=== PATIENT | female | born 1970 | race Caucasian/White ===

== ENCOUNTER 2021-03-10 03:42 | Observation (INO) ==
[2021-03-10] MEDS ORDERED: 0.9 % Sodium Chloride 1,000 ML IVC ONE (04:00)
[2021-03-10] MEDS ORDERED: Pantoprazole 40 MG VIAL IVP ONE (04:01)
[2021-03-10] MEDS ORDERED: Metoclopramide 10 MG/2 ML VIAL IVP ONE (04:01)
[2021-03-10 04:17] LABS: Basophils # 0.1 K/mcL (0.0-0.2); Basophils % 0.4 %; Eosinophils # 0.1 K/mcL (0.0-0.6); Eosinophils % 0.4 %; Hematocrit 40.5 % (35.3-44.9); Hemoglobin 14.2 g/dL (11.5-15.4); Immature Granulocytes % 0.3 % (0-4); Lymphocytes # 0.3 K/mcL (0.6-4.6); Lymphocytes % 2.8 %; Mean Corpuscular HGB Conc 35.1 g/dL (31.6-35.5); Mean Corpuscular Hemoglobin 29.7 pg (28.0-33.3); Mean Corpuscular Volume 84.7 fL (83.0-100.0); Mean Platelet Volume 9.6 fL (9.4-12.4); Monocytes # 0.5 K/mcL (0.0-1.3); Monocytes % 4.2 %; Neutrophils # 10.5 K/mcL (1.6-8.9); Platelet Count 109 K/mcL (140-400); Red Blood Count 4.78 M/mcL (3.82-4.97); Red Cell Distribution Width 12.8 % (11.5-14.5); Segmented Neutrophils % 91.9 %; White Blood Count 11.4 K/mcL (4.3-11.1)
[2021-03-10 04:34] LABS: Albumin/Globulin Ratio 1.4 (1.1-2.2); Bilirubin,Total 2.1 mg/dL (0.3-1.0); Calcium 9.3 mg/dL (8.6-10.3); Globulin 2.9 g/dL (2.4-3.5); Potassium 4.5 mEq/L (3.5-5.1); Total Protein 6.9 g/dL (6.4-8.9)
[2021-03-10 04:37] LABS: Bilirubin,Urine Negative (Negative); Blood,Urine Small (Negative); Clarity,Urine Slightly Cloudy (Clear); Glucose,Urine (UA) 500 mg/dL (Normal); Ketones,Urine Negative (Negative); Leukocyte Esterase,Urine Negative (Negative); Nitrite,Urine Negative (Negative); PH,Urine 7.5 pH Units (5.0-8.0); Protein,Urine >=300 mg/dL (Neg-Trace); Specific Gravity,Urine 1.025 (1.010-1.025); Urobilinogen,Urine Normal (Normal)
[2021-03-10 04:40] LABS: Color,Urine Yellow (Yellow); Squamous Epithelial Cell,Urine Few per hpf (None-Few)
[2021-03-10 04:41] LABS: Amorphous Sediment,Urine Few per hpf (None-Few)
[2021-03-10] MEDS ORDERED: Insulin Regular, Human 100 UNIT/ML SUBQ ONE (06:14)
[2021-03-10] MEDS ORDERED: *HR* HYDROcodone/Acet 5/325 mg TABLET PO PRN (09:25)
[2021-03-10] MEDS ORDERED: Mag Hydrox/Al Hydrox/Simeth 30 ML UDC PO PRN (09:25)
[2021-03-10] MEDS ORDERED: Naloxone 0.4 MG/ML INJ IVP PRN (09:25)
[2021-03-10] MEDS ORDERED: MOM Conc 10 ML UD.LIQ PO PRN (09:25)
[2021-03-10] MEDS ORDERED: Melatonin 3 MG TABLET PO PRN (09:25)
[2021-03-10] MEDS ORDERED: Ondansetron ODT 4 MG TAB.RAPDIS SL PRN (09:25)
[2021-03-10] MEDS ORDERED: Ondansetron 4 MG/2 ML VIAL IVP PRN (09:25)
[2021-03-10] MEDS: 0.9 % Sodium Chloride w KCl 20 MEQ/1,000 ML MLS IVC SCH ×2 (10:14→23:56)
[2021-03-10] MEDS ORDERED: Dextrose Gel 15 GM/37.5 ML TUBE PO PRN ×2 (12:35)
[2021-03-10] MEDS ORDERED: *HR* Dextrose 50 % in Water (Vial) 50 ML VIAL IVP PRN (12:35)
[2021-03-10] MEDS ORDERED: D5% in Water 1,000 ML IVC PRN (12:35)
[2021-03-10] MEDS: Insulin LISPRO 300 UNITS/3 ML VIAL SUBQ SCH ×2 (13:23→17:33)
[2021-03-10] MEDS: Ibuprofen 400 MG TABLET PO PRN (16:12)
[2021-03-10 19:19] LABS: Hepatitis B Surface Antigen Nonreactive (Nonreactive)
[2021-03-10 19:23] LABS: Estimated Average Glucose 186 mg/dl; Hemoglobin A1C 8.1 %
[2021-03-10 19:49] LABS: Hepatitis B Core IgM Nonreactive (Nonreactive); Hepatitis C Virus Antibody Nonreactive (Nonreactive)
[2021-03-10 19:50] LABS: Hepatitis A Antibody IgM Nonreactive (Nonreactive)
[2021-03-10] MEDS ORDERED: Insulin LISPRO 300 UNITS/3 ML VIAL SUBQ SCH (21:00)
[2021-03-10] MEDS ORDERED: Insulin DETEMIR 100 UNIT/ML X5UNITS SUBQ SCH (21:00)
[2021-03-10] MEDS: traZODone 50 MG TABLET PO SCH (21:56)
[2021-03-10] MEDS: Gabapentin 300 MG CAPSULE PO SCH (21:56)
[2021-03-11 05:41] LABS: Basophils % 0.4 %; Eosinophils % 0.6 %; Hemoglobin 11.8 g/dL (11.5-15.4); Lymphocytes # 0.5 K/mcL (0.6-4.6); Lymphocytes % 10.1 %; Mean Corpuscular HGB Conc 33.7 g/dL (31.6-35.5); Mean Corpuscular Hemoglobin 29.3 pg (28.0-33.3); Mean Corpuscular Volume 86.8 fL (83.0-100.0); Mean Platelet Volume 9.5 fL (9.4-12.4); Monocytes # 0.3 K/mcL (0.0-1.3); Monocytes % 6.5 %; Red Blood Count 4.03 M/mcL (3.82-4.97); Red Cell Distribution Width 13.2 % (11.5-14.5); Segmented Neutrophils % 81.4 %; White Blood Count 5.2 K/mcL (4.3-11.1)
[2021-03-11 05:45] LABS: Neutrophils # 4.2 K/mcL (1.6-8.9)
[2021-03-11 05:46] LABS: Platelet Count 82 K/mcL (140-400)
[2021-03-11 05:59] LABS: Albumin 3.2 g/dL (3.5-5.7); Albumin/Globulin Ratio 1.3 (1.1-2.2); Bilirubin,Total 1.5 mg/dL (0.3-1.0); Calcium 8.1 mg/dL (8.6-10.3); Globulin 2.5 g/dL (2.4-3.5); Magnesium 1.9 mg/dL (1.6-2.6); Phosphorous 2.2 mg/dL (2.7-4.5); Potassium 4.4 mEq/L (3.5-5.1); Total Protein 5.7 g/dL (6.4-8.9)
[2021-03-11] MEDS: Insulin LISPRO 300 UNITS/3 ML VIAL SUBQ SCH ×3 (09:45→16:16)
[2021-03-11] MEDS: Gabapentin 300 MG CAPSULE PO SCH ×2 (09:45→22:29)
[2021-03-11] MEDS: Ibuprofen 400 MG TABLET PO PRN (09:50)
[2021-03-11] MEDS ORDERED: MOM Conc 10 ML UD.LIQ PO PRN (14:35)
[2021-03-11] MEDS ORDERED: Insulin LISPRO 300 UNITS/3 ML VIAL SUBQ SCH (14:44)
[2021-03-11] MEDS ORDERED: Insulin DETEMIR 100 UNIT/ML per UNIT SUBQ ONE (15:00)
[2021-03-11] MEDS: traZODone 50 MG TABLET PO SCH (22:28)
[2021-03-11] MEDS: hydrOXYzine pamoate 25 MG CAPSULE PO SCH (22:31)
[2021-03-11] MEDS: Sennosides/Docusate Sodium TABLET PO SCH (22:32)
[2021-03-11] MEDS: Insulin DETEMIR 100 UNIT/ML X5UNITS SUBQ SCH (22:36)
[2021-03-12 06:42] VITALS: BP 156/82
[2021-03-12] MEDS ORDERED: polyethylene glycoL 3350 17 GM POWD.PACK PO SCH (09:00)
[2021-03-12] MEDS: Sennosides/Docusate Sodium TABLET PO SCH (09:18)
[2021-03-12] MEDS: Gabapentin 300 MG CAPSULE PO SCH (09:20)
[2021-03-12] MEDS: Insulin DETEMIR 100 UNIT/ML X5UNITS SUBQ SCH (09:20)
[2021-03-12] MEDS: hydrOXYzine pamoate 25 MG CAPSULE PO SCH (09:20)
[2021-03-12] MEDS: Insulin LISPRO 300 UNITS/3 ML VIAL SUBQ SCH (09:21)
== END 2021-03-12 12:31 | disposition home or self-care (01) ==
LOC: EMEROOGRE 03:42 → INPGRE 03:42
PROVIDERS: ADMIT Family Medicine; ATTEND Family Medicine

== ENCOUNTER 2022-04-20 17:53 | Inpatient (IN) ==
[2022-04-20] MEDS ORDERED: Vancomycin 1,500 MG in D5% in Water 250 ML IVPB ONE (18:24)
[2022-04-20 18:59] LABS: Basophils % 0.8 %; Eosinophils # 0.1 K/mcL (0.0-0.6); Eosinophils % 2.1 %; Hematocrit 39.8 % (35.3-44.9); Hemoglobin 14.1 g/dL (11.5-15.4); Immature Granulocytes % 0.6 % (0-4); Lymphocytes # 0.6 K/mcL (0.6-4.6); Lymphocytes % 13.3 %; Mean Corpuscular HGB Conc 35.4 g/dL (31.6-35.5); Mean Corpuscular Hemoglobin 29.4 pg (28.0-33.3); Mean Corpuscular Volume 83.1 fL (83.0-100.0); Mean Platelet Volume 9.8 fL (9.4-12.4); Monocytes # 0.2 K/mcL (0.0-1.3); Monocytes % 4.4 %; Neutrophils # 3.8 K/mcL (1.6-8.9); Platelet Count 143 K/mcL (140-400); Red Blood Count 4.79 M/mcL (3.82-4.97); Red Cell Distribution Width 13.1 % (11.5-14.5); Segmented Neutrophils % 78.8 %; White Blood Count 4.8 K/mcL (4.3-11.1)
[2022-04-20] MEDS ORDERED: Silver Sulfadiazine 50 GM TUBE TP ONE (19:13)
[2022-04-20 19:25] LABS: Albumin 3.7 g/dL (3.5-5.7); Albumin/Globulin Ratio 1.2 (1.1-2.2); Bilirubin,Total 0.7 mg/dL (0.3-1.0); Calcium 9.5 mg/dL (8.6-10.3); Potassium 4.8 mEq/L (3.5-5.1); Total Protein 6.7 g/dL (6.4-8.9)
[2022-04-20] MEDS ORDERED: 0.9 % Sodium Chloride 1,000 ML IVC ONE (19:25)
[2022-04-20] MEDS ORDERED: Insulin Regular, Human 100 UNIT/ML SUBQ ONE (19:25)
[2022-04-20] MEDS ORDERED: Ondansetron ODT 4 MG TAB.RAPDIS SL PRN (22:17)
[2022-04-20] MEDS ORDERED: Acetaminophen 325 MG TABLET PO PRN (22:17)
[2022-04-20] MEDS ORDERED: Naloxone 0.4 MG/ML INJ IVP PRN (22:17)
[2022-04-20] MEDS ORDERED: Ibuprofen 400 MG TABLET PO PRN (22:17)
[2022-04-20] MEDS ORDERED: *HR* HYDROcodone/Acet 5/325 mg TABLET PO PRN (22:17)
[2022-04-20] MEDS ORDERED: *HR* Dextrose 50 % in Water (Syg) 50 ML SYRINGE IVP PRN (23:04)
[2022-04-20] MEDS ORDERED: D5% in Water 1,000 ML IVC PRN (23:04)
[2022-04-20] MEDS ORDERED: Dextrose Gel 15 GM/37.5 ML TUBE PO PRN ×2 (23:04)
[2022-04-20] MEDS: Insulin DETEMIR 100 UNIT/ML X5UNITS SUBQ SCH (23:25)
[2022-04-20] MEDS: Mirtazapine 15 MG TABLET PO SCH (23:25)
[2022-04-20] MEDS ORDERED: Insulin DETEMIR 100 UNIT/ML per UNIT SUBQ ONE (23:30)
[2022-04-20] MEDS ORDERED: metroNIDAZOLE 500 MG TABLET PO SCH (23:30)
[2022-04-21] MEDS: Piperacillin/Tazobactam 3.375 GM in 0.9 % Sodium Chloride Mini Bag 100 ML IVPB SCH ×3 (00:23→16:57)
[2022-04-21] MEDS: Insulin LISPRO 300 UNITS/3 ML VIAL SUBQ SCH ×6 (00:30→20:33)
[2022-04-21 05:19] LABS: Basophils % 0.9 %; Eosinophils # 0.1 K/mcL (0.0-0.6); Eosinophils % 2.2 %; Hematocrit 35.8 % (35.3-44.9); Hemoglobin 12.6 g/dL (11.5-15.4); Immature Granulocytes % 0.7 % (0-4); Lymphocytes % 22.1 %; Mean Corpuscular HGB Conc 35.2 g/dL (31.6-35.5); Mean Corpuscular Hemoglobin 29.1 pg (28.0-33.3); Mean Corpuscular Volume 82.7 fL (83.0-100.0); Mean Platelet Volume 9.6 fL (9.4-12.4); Monocytes # 0.4 K/mcL (0.0-1.3); Monocytes % 7.6 %; Neutrophils # 3.1 K/mcL (1.6-8.9); Platelet Count 134 K/mcL (140-400); Red Blood Count 4.33 M/mcL (3.82-4.97); Red Cell Distribution Width 12.9 % (11.5-14.5); Segmented Neutrophils % 66.5 %; White Blood Count 4.6 K/mcL (4.3-11.1)
[2022-04-21 05:35] LABS: Potassium 3.7 mEq/L (3.5-5.1)
[2022-04-21] MEDS: Losartan/HCTZ 50-12.5 TABLET PO SCH (08:51)
[2022-04-21] MEDS: *HR* HYDROcodone/Acet 5/325 mg TABLET PO PRN ×2 (14:48→19:56)
[2022-04-21] MEDS: Vancomycin 1,500 MG/265 ML IV.SOLN IVPB SCH (17:32)
[2022-04-21] MEDS: Mirtazapine 15 MG TABLET PO SCH (19:52)
[2022-04-22] MEDS: Piperacillin/Tazobactam 3.375 GM in 0.9 % Sodium Chloride Mini Bag 100 ML IVPB SCH ×3 (00:18→16:57)
[2022-04-22] MEDS: Insulin LISPRO 300 UNITS/3 ML VIAL SUBQ SCH ×6 (00:18→20:59)
[2022-04-22 01:54] LABS: Bacteria,Urine Few per hpf (None-Few); Bilirubin,Urine Negative (Negative); Blood,Urine Negative (Negative); Clarity,Urine Clear (Clear); Color,Urine Yellow (Yellow); Glucose,Urine (UA) Normal (Normal); Ketones,Urine Negative (Negative); Leukocyte Esterase,Urine Small (Negative); Nitrite,Urine Negative (Negative); Protein,Urine Trace mg/dL (Neg-Trace); RBC,Urine 0-3 per hpf (0-3); Squamous Epithelial Cell,Urine Few per hpf (None-Few); Urobilinogen,Urine Normal (Normal)
[2022-04-22] MEDS: *HR* Enoxaparin 40 MG/0.4 ML SYRINGE SQ SCH (05:14)
[2022-04-22 08:18] LABS: Hematocrit 37.9 % (35.3-44.9); Hemoglobin 13.1 g/dL (11.5-15.4); Mean Corpuscular HGB Conc 34.6 g/dL (31.6-35.5); Mean Corpuscular Hemoglobin 29.3 pg (28.0-33.3); Mean Corpuscular Volume 84.8 fL (83.0-100.0); Mean Platelet Volume 9.5 fL (9.4-12.4); Platelet Count 126 K/mcL (140-400); Red Blood Count 4.47 M/mcL (3.82-4.97); Red Cell Distribution Width 13.3 % (11.5-14.5); White Blood Count 3.9 K/mcL (4.3-11.1)
[2022-04-22 08:32] LABS: Albumin 3.2 g/dL (3.5-5.7); Albumin/Globulin Ratio 1.3 (1.1-2.2); Bilirubin,Total 0.8 mg/dL (0.3-1.0); Calcium 9.1 mg/dL (8.6-10.3); Globulin 2.5 g/dL (2.4-3.5); Magnesium 2.1 mg/dL (1.6-2.6); Potassium 3.9 mEq/L (3.5-5.1); Total Protein 5.7 g/dL (6.4-8.9)
[2022-04-22] MEDS: Losartan/HCTZ 50-12.5 TABLET PO SCH (09:01)
[2022-04-22] MEDS: *HR* HYDROcodone/Acet 5/325 mg TABLET PO PRN ×3 (09:02→20:56)
[2022-04-22] MEDS: Vancomycin 1,500 MG/265 ML IV.SOLN IVPB SCH (16:57)
[2022-04-22] MEDS: Mirtazapine 15 MG TABLET PO SCH (20:56)
[2022-04-22] MEDS: Insulin DETEMIR 100 UNIT/ML X5UNITS SUBQ SCH (20:59)
[2022-04-22 23:23] LABS: A.calcoaceticus-baumannii cplx Not Detected (Not Detect); Bacteroides fragilis by PCR Not Detected (Not Detect); CTX-M ESBL Gene Not Detected (Not Detect); Candida albicans by PCR Not Detected (Not Detect); Candida auris by PCR Not Detected (Not Detect); Candida glabrata by PCR Not Detected (Not Detect); Candida krusei by PCR Not Detected (Not Detect); Candida parapsilosis by PCR Not Detected (Not Detect); Candida tropicalis by PCR Not Detected (Not Detect); Crypto. neoformans/gattii PCR Not Detected (Not Detect); Enterobacter cloacae Cmplx PCR Not Detected (Not Detect); Enterobacterales by PCR Not Detected (Not Detect); Enterococcus faecalis by PCR Not Detected (Not Detect); Enterococcus faecium by PCR Not Detected (Not Detect); Escherichia coli by PCR Not Detected (Not Detect); IMP Carbapenem-Resist Gene Not Detected (Not Detect); Klebs. pneumoniae group by PCR Not Detected (Not Detect); Klebsiella aerogenes by PCR Not Detected (Not Detect); Klebsiella oxytoca by PCR Not Detected (Not Detect); NDM Carbapenem-Resist Gene Not Detected (Not Detect); OXA-48-like Carbap-Resist Gene Not Detected (Not Detect); Proteus by PCR Not Detected (Not Detect); Pseudomonas aeruginosa by PCR Not Detected (Not Detect); Salmonella species by PCR Not Detected (Not Detect); Serratia marcescens by PCR Not Detected (Not Detect); Staph epidermidis by PCR Not Detected (Not Detect); Staph lugdunensis by PCR Not Detected (Not Detect); Staphylococcus aureus by PCR Not Detected (Not Detect); Staphylococcus by PCR DETECTED (Not Detect); Stenotrophomonas maltophilia Not Detected (Not Detect); Streptococcus agalactiae(B)PCR Not Detected (Not Detect); Streptococcus by PCR Not Detected (Not Detect); Streptococcus pneumoniae PCR Not Detected (Not Detect); Streptococcus pyogenes (A) PCR Not Detected (Not Detect); VIM Carbapenem-Resist Gene Not Detected (Not Detect); blaKPC Carbapenem-Resist Gene Not Detected (Not Detect); mcr-1 Colistin-Resist Gene Not Detected (Not Detect); mecA/C & MREJ (MRSA) Gene Not Detected (Not Detect); mecA/C Methicillin-Resist Gene Not Detected (Not Detect); vanA/B Vancomycin-Resist Genes Not Detected (Not Detect)
[2022-04-23] MEDS: Insulin LISPRO 300 UNITS/3 ML VIAL SUBQ SCH ×6 (00:31→20:47)
[2022-04-23] MEDS: Piperacillin/Tazobactam 3.375 GM in 0.9 % Sodium Chloride Mini Bag 100 ML IVPB SCH ×2 (00:33→08:25)
[2022-04-23] MEDS: *HR* Enoxaparin 40 MG/0.4 ML SYRINGE SQ SCH (04:47)
[2022-04-23] MEDS: *HR* HYDROcodone/Acet 5/325 mg TABLET PO PRN ×2 (04:49→20:44)
[2022-04-23] MEDS: Losartan/HCTZ 50-12.5 TABLET PO SCH (08:23)
[2022-04-23] MEDS: Fluconazole 200 MG/100 ML 200 MG/100 ML BAG IVPB SCH (08:24)
[2022-04-23] MEDS ORDERED: Perflutren Lipid Microsphere 1.3 ML in 0.9 % Sodium Chloride 8.7 ML IVP PRN (12:14)
[2022-04-23] MEDS ORDERED: Insulin DETEMIR 100 UNIT/ML X5UNITS SUBQ SCH ×2 (12:16→21:00)
[2022-04-23] MEDS ORDERED: Insulin DETEMIR 100 UNIT/ML per UNIT SUBQ ONE (12:30)
[2022-04-23] MEDS ORDERED: 0.9 % Sodium Chloride 1,000 ML IVC SCH (13:30)
[2022-04-23] MEDS: *HR* Heparin 5,000 UNIT/ML VIAL SQ SCH ×2 (13:57→20:46)
[2022-04-23] MEDS: Vancomycin 1,500 MG/265 ML IV.SOLN IVPB SCH (16:51)
[2022-04-23] MEDS: Mirtazapine 15 MG TABLET PO SCH (20:45)
[2022-04-23] MEDS: Insulin DETEMIR 100 UNIT/ML X5UNITS SUBQ SCH (20:47)
[2022-04-24] MEDS: Insulin LISPRO 300 UNITS/3 ML VIAL SUBQ SCH ×8 (00:31→20:30)
[2022-04-24 04:34] LABS: Eosinophils # 0.1 K/mcL (0.0-0.6); Eosinophils % 2.6 %; Hemoglobin 12.9 g/dL (11.5-15.4); Lymphocytes # 0.9 K/mcL (0.6-4.6); Lymphocytes % 29.7 %; Mean Corpuscular HGB Conc 33.9 g/dL (31.6-35.5); Mean Corpuscular Volume 85.4 fL (83.0-100.0); Mean Platelet Volume 9.2 fL (9.4-12.4); Monocytes # 0.2 K/mcL (0.0-1.3); Monocytes % 7.8 %; Neutrophils # 1.8 K/mcL (1.6-8.9); Platelet Count 109 K/mcL (140-400); Red Blood Count 4.45 M/mcL (3.82-4.97); Red Cell Distribution Width 13.3 % (11.5-14.5); Segmented Neutrophils % 57.9 %; White Blood Count 3.1 K/mcL (4.3-11.1)
[2022-04-24 04:49] LABS: Calcium 9.2 mg/dL (8.6-10.3); Potassium 4.5 mEq/L (3.5-5.1)
[2022-04-24] MEDS: *HR* Heparin 5,000 UNIT/ML VIAL SQ SCH ×3 (06:21→20:36)
[2022-04-24] MEDS: *HR* HYDROcodone/Acet 5/325 mg TABLET PO PRN ×3 (09:14→20:59)
[2022-04-24] MEDS: Losartan/HCTZ 50-12.5 TABLET PO SCH (09:14)
[2022-04-24] MEDS: Fluconazole 200 MG/100 ML 200 MG/100 ML BAG IVPB SCH (09:15)
[2022-04-24] MEDS: Insulin DETEMIR 100 UNIT/ML X5UNITS SUBQ SCH (09:17)
[2022-04-24] MEDS: Vancomycin 1,500 MG/265 ML IV.SOLN IVPB SCH (17:05)
[2022-04-24] MEDS: Mirtazapine 15 MG TABLET PO SCH (20:33)
[2022-04-24] MEDS ORDERED: Insulin DETEMIR 100 UNIT/ML X5UNITS SUBQ SCH (21:00)
[2022-04-24] MEDS ORDERED: Insulin DETEMIR 100 UNIT/ML per UNIT SUBQ ONE (21:00)
[2022-04-25] MEDS: Insulin LISPRO 300 UNITS/3 ML VIAL SUBQ SCH ×9 (00:15→20:13)
[2022-04-25 04:58] LABS: Eosinophils # 0.1 K/mcL (0.0-0.6); Eosinophils % 2.6 %; Hematocrit 35.9 % (35.3-44.9); Hemoglobin 12.3 g/dL (11.5-15.4); Lymphocytes % 32.1 %; Mean Corpuscular HGB Conc 34.3 g/dL (31.6-35.5); Mean Corpuscular Hemoglobin 29.6 pg (28.0-33.3); Mean Corpuscular Volume 86.3 fL (83.0-100.0); Mean Platelet Volume 9.6 fL (9.4-12.4); Monocytes # 0.2 K/mcL (0.0-1.3); Monocytes % 7.2 %; Neutrophils # 1.7 K/mcL (1.6-8.9); Platelet Count 103 K/mcL (140-400); Red Blood Count 4.16 M/mcL (3.82-4.97); Red Cell Distribution Width 13.7 % (11.5-14.5); Segmented Neutrophils % 56.1 %; White Blood Count 3.1 K/mcL (4.3-11.1)
[2022-04-25] MEDS: *HR* Heparin 5,000 UNIT/ML VIAL SQ SCH ×3 (05:12→20:16)
[2022-04-25 05:16] LABS: Potassium 4.3 mEq/L (3.5-5.1)
[2022-04-25] MEDS: *HR* HYDROcodone/Acet 5/325 mg TABLET PO PRN (05:16)
[2022-04-25] MEDS: Insulin DETEMIR 100 UNIT/ML X5UNITS SUBQ SCH ×2 (08:08→20:13)
[2022-04-25] MEDS: Losartan/HCTZ 50-12.5 TABLET PO SCH (08:13)
[2022-04-25] MEDS: Fluconazole 200 MG/100 ML 200 MG/100 ML BAG IVPB SCH (08:14)
[2022-04-25] MEDS: Mirtazapine 15 MG TABLET PO SCH (20:12)
[2022-04-25] MEDS: Lactobacillus 1 EACH CAP.SPRINK PO SCH (20:12)
[2022-04-26] MEDS: Insulin LISPRO 300 UNITS/3 ML VIAL SUBQ SCH ×9 (00:13→20:15)
[2022-04-26] MEDS: *HR* Heparin 5,000 UNIT/ML VIAL SQ SCH ×3 (04:51→20:16)
[2022-04-26 06:02] LABS: Albumin 3.1 g/dL (3.5-5.7); Albumin/Globulin Ratio 1.3 (1.1-2.2); Bilirubin,Total 0.5 mg/dL (0.3-1.0); Calcium 9.1 mg/dL (8.6-10.3); Globulin 2.3 g/dL (2.4-3.5); Potassium 4.1 mEq/L (3.5-5.1); Total Protein 5.4 g/dL (6.4-8.9)
[2022-04-26] MEDS: Insulin DETEMIR 100 UNIT/ML X5UNITS SUBQ SCH ×2 (08:03→20:15)
[2022-04-26] MEDS: Fluconazole 200 MG/100 ML 200 MG/100 ML BAG IVPB SCH (08:04)
[2022-04-26] MEDS: Lactobacillus 1 EACH CAP.SPRINK PO SCH ×2 (08:05→20:15)
[2022-04-26] MEDS: Losartan/HCTZ 50-12.5 TABLET PO SCH (08:05)
[2022-04-26] MEDS ORDERED: Cefdinir 300 MG CAPSULE PO SCH (10:00)
[2022-04-26] MEDS ORDERED: 0.9 % Sodium Chloride 1,000 ML IVC SCH (10:15)
[2022-04-26] MEDS: levoFLOXacin 750 MG TABLET PO SCH (12:07)
[2022-04-26] MEDS ORDERED: Ondansetron 4 MG/2 ML VIAL IVP PRN (12:45)
[2022-04-26] MEDS: Mirtazapine 15 MG TABLET PO SCH (20:15)
[2022-04-27] MEDS: Insulin LISPRO 300 UNITS/3 ML VIAL SUBQ SCH ×6 (00:38→12:11)
[2022-04-27 04:14] VITALS: O2SAT 99
[2022-04-27 05:02] LABS: Basophils % 0.8 %; Eosinophils # 0.1 K/mcL (0.0-0.6); Eosinophils % 2.8 %; Hematocrit 34.9 % (35.3-44.9); Immature Granulocytes % 0.8 % (0-4); Lymphocytes # 0.7 K/mcL (0.6-4.6); Lymphocytes % 26.3 %; Mean Corpuscular HGB Conc 34.4 g/dL (31.6-35.5); Mean Corpuscular Hemoglobin 29.6 pg (28.0-33.3); Mean Platelet Volume 9.4 fL (9.4-12.4); Monocytes # 0.2 K/mcL (0.0-1.3); Neutrophils # 1.5 K/mcL (1.6-8.9); Red Blood Count 4.06 M/mcL (3.82-4.97); Red Cell Distribution Width 13.9 % (11.5-14.5); Segmented Neutrophils % 61.3 %; White Blood Count 2.5 K/mcL (4.3-11.1)
[2022-04-27 05:16] LABS: Calcium 9.4 mg/dL (8.6-10.3); Potassium 4.2 mEq/L (3.5-5.1)
[2022-04-27 05:17] LABS: Platelet Count 87 K/mcL (140-400)
[2022-04-27] MEDS: *HR* Heparin 5,000 UNIT/ML VIAL SQ SCH (05:50)
[2022-04-27 07:31] VITALS: BP 146/74; PULSE 65; RESP 16; TEMP 97.4
[2022-04-27] MEDS: levoFLOXacin 750 MG TABLET PO SCH (08:58)
[2022-04-27] MEDS: Losartan/HCTZ 50-12.5 TABLET PO SCH (08:58)
[2022-04-27] MEDS: Lactobacillus 1 EACH CAP.SPRINK PO SCH (08:58)
[2022-04-27] MEDS: Insulin DETEMIR 100 UNIT/ML X5UNITS SUBQ SCH (08:59)
== END 2022-04-27 12:11 | disposition home or self-care (01) | DRG 603 ==
LOC: EMEROOGRE 17:53 → INPGRE 17:53
PROVIDERS: ADMIT Internal Medicine; ATTEND Internal Medicine